=== PATIENT | female | born 1955 | race Caucasian/White ===

== ENCOUNTER → 2017-04-06 | Outpatient (CLI) | payer MEDICARE, OTHER ==
[~2017-04-06] MED LIST: ARI2 PO; ESCI20TA8 PO; FLUT16SP19 NS; FURO-47 PO; LOSA50TA72 PO; METF-410 PO; OMEP-125 PO
[2017-04-06 12:28] LABS: LDL CHOLESTEROL 104 mg/dl
== END ==
LOC: LAB 11:32
PROVIDERS: ATTEND Nurse Practitioner Primary Care
DX: E11.9 Type 2 diabetes mellitus without complications (principal); I10 Essential (primary) hypertension
CPT/HCPCS: 36415; 82040; 82247; 82310; 82374; 82435; 82465; 82565; 82947; 83036; 83718; 84075; 84132; 84155; 84295; 84450; 84460; 84478; 84520

== ENCOUNTER → 2017-04-12 | Outpatient (CLI) | payer MEDICARE, OTHER ==
[~2017-04-12] MED LIST changes: +ATOR40TA69 PO; +BLOO-1337 MC; +METF-415 PO
== END ==
LOC: LAB 09:59
PROVIDERS: ATTEND Nurse Practitioner Primary Care
DX: E78.00 Pure hypercholesterolemia, unspecified (principal)
CPT/HCPCS: 36415; 82465; 83718; 84478

== ENCOUNTER 2017-05-17 10:55 | Outpatient (RCR) | payer MEDICARE, OTHER ==
[2017-04-26 11:02] VITALS: BP 141/80
[2017-04-26 11:21] LABS: PLATELET COUNT, AUTOMATED 219 K/uL (150-450)
[~2017-05-17 10:55] MED LIST changes: +BLOO-292 ASDIRECTED
[2017-05-17 11:02] VITALS: BP 138/81
--- NOTE | 2017-05-17 19:12 | ONCOLOGY FOLLOW UP NOTE ---
EVENT DATE: May 17, 2017 DIAGNOSES 1. 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 EGFR negative, ALK negative. 2. Hypertension. 3. Obstructive sleep apnea. 4. History of intracerebral bleed after brain radiation. 5. Depression. CHIEF COMPLAINT Patient is here today for followup of her stage IV left lung cancer. ONCOLOGY HISTORY Patient is a 62-year-old female who was initially diagnosed with stage IV adenocarcinoma of the lower lobe of the left lung with multiple brain metastases , diagnosed October 2012. At that time her stage was (T1b N2 M1b). Her tumor was grade 3 adenocarcinoma, EGFR negative, ALK negative. She was treated at [facility] in [place]. She received stereotactic radiosurgery to the brain metastasis, completed October 2012. She was treated with carboplatin, Alimta for a total of four cycles completed March 28, 2013. She tolerated chemotherapy poorly and she had progression of her disease, and for which the patient received second line Taxotere, and she received 12 cycles between April 22, 2013 through December 12, 2013, and treatment was discontinued due to the development of capillary leak syndrome. Re-staging workup at that time showed excellent response to the treatment, and given the poor tolerability to Taxotere, she was placed on surveillance. She moved to [place] in January of 2016. PAST MEDICAL HISTORY 1. Allergy. 2. Hypertension. 3. History of lung cancer. PAST SURGICAL SURGERY 1. Back surgery. 2. Brain surgery. 3. Tonsillectomy. SOCIAL HISTORY Patient is a heavy smoker. She smoked half a pack a day for 30 years. She drinks on a daily basis, about 8.4 oz per week, 14 shots of liquor per week. Denies any abuse of illicit drugs. FAMILY HISTORY Negative for cancer or blood diseases. Her sister had rheumatoid arthritis and father also. CURRENT MEDICATION 1. Abilify 2 mg tablet one tablet daily. 2. Escitalopram 20 mg daily. 3. Folic acid and multivitamin one a day. 4. Lasix 40 mg daily. 5. Losartan 50 mg daily. 6. Metformin 500 mg twice daily. 7. Omeprazole 20 mg daily. ALLERGIES 1. IODINE and IODIDE CONTAINING PRODUCTS, which causes hives. 2. SULFA DRUGS which cause rash. HISTORY OF PRESENT ILLNESS Patient is here today for follow up of her left lung cancer. She is totally asymptomatic and doing very well currently. REVIEW OF SYSTEMS CONSTITUTIONAL: No appetite or weight change. No fever, chills or sweating. No recent infection. HEENT: Ears: No tinnitus or hearing problem. Nose: No nasal discharge or epistaxis. Throat: No sore throat or mouth ulcers. Eyes: No diplopia or visual changes. RESPIRATORY: No shortness of breath. No cough, expectoration or hemoptysis. CARDIOVASCULAR: No chest pain, orthopnea, or paroxysmal nocturnal dyspnea (PND) . No edema. No palpitations. GASTROINTESTINAL: No nausea or vomiting. No diarrhea or constipation. No change in bowel movements. No heartburn or swallowing difficulties. No abdominal pain. No jaundice. No hematemesis, melena or rectal bleeding. GENITOURINARY: No hematuria or dysuria. MUSCULOSKELETAL: No pain in the muscles, joints or bones. NEUROLOGICAL: No tingling or numbness in the hands or feet. No headaches or convulsions. HEMATOLOGIC/LYMPHATIC: No bleeding or easy bruising. No weakness or fatigue. No enlarged lymph nodes. SKIN: No skin rash or lumps. PSYCHIATRIC: No anxiety or depression. PHYSICAL EXAMINATION GENERAL: Looks stable. Well-developed, well-nourished, and in no acute distress. VITAL SIGNS: Blood pressure 138/81, pulse 71 per minute, respirations 16 per minute, temperature 97.6, pulse ox 91% on room air. HEENT: Head: Atraumatic. No sinus tenderness to palpation. Eyes: No icterus or conjunctivitis. Mouth and throat: No oral thrush or mucositis. NECK: Supple. No cervical or supraclavicular lymphadenopathy. LUNGS: Clear to auscultation and percussion bilaterally. HEART: Regular rate and rhythm. No gallops, murmurs, clicks or rubs. ABDOMEN: Soft and lax. No tenderness. No hepatosplenomegaly. No masses. EXTREMITIES: No cyanosis, clubbing or edema. LYMPHATICS: No peripheral lymphadenopathy. NEUROLOGICAL: Conscious, alert and oriented times three. No focal motor or sensory deficits. PSYCHIATRIC: Mood and affect appear normal. SKIN: No skin rash, bruise or purpuric eruption. DIAGNOSTIC DATA MRI of the brain did not show any evidence of disease recurrence in her brain, while PET-CT scan done on May 01, 2017 did not show any systemic metastasis , but there was some activity identified in the left perihilar region in the lung. The previous exam had an SUV of 2.8, and her recent exam had an SUV of 3.2. ASSESSMENT Stage IV adenocarcinoma of the lower lobe of the left lung with brain metastasis , EGFR negative, ALK negative. Status post initial treatment with carboplatin, Alimta for four cycles. Received during 2012 and completed on March 28, 2013 with poor tolerance. On progression of her disease she received 12 courses of Taxotere between April 22, 2013 through December 12, 2013, and treatment was discontinued at that time because of capillary leak syndrome. She achieved very good response from the treatment and she was on surveillance since then. Her recent PET scan done in November 2016 was neg, and the previous uptake in the mediastinum resolved, but her recent PET-CT scan done on May 01, 2016 did reveal increased uptake in the left perihilar region with SUV increased from 2.8 to 3.2. I talked to the patient today regarding further management. We decided to continue followup and will repeat per PET scan in three months from now, and if the SUV continues to rise, I am planning to start treatment at that time. So I am planning to see her again in three months with CBC, chem panel, CEA and PET-CT scan for further evaluation. PLAN 1. Continue followup. 2. Patient to return in three months with CBC, chem panel, CEA and PET-CT scan. 3. Patient to contact us for any new concerns or complaints. ALLYD
[2017-06-18] MEDS ORDERED: ESCI20TA8 PO (10:24)
== END 2017-06-20 15:32 | disposition home or self-care (01) ==
LOC: ONC 10:55
PROVIDERS: ATTEND Internal Medicine Hematology
DX: C34.32 Malignant neoplasm of lower lobe, left bronchus or lung (principal); C79.31 Secondary malignant neoplasm of brain; I10 Essential (primary) hypertension; G47.33 Obstructive sleep apnea (adult) (pediatric); F17.210 Nicotine dependence, cigarettes, uncomplicated; Z79.899 Other long term (current) drug therapy
CPT/HCPCS: 36415; 82378; 85025; G0463; 82040; 82247; 82310; 82374; 82435; 82565; 82947; 84075; 84132; 84155; 84295; 84450; 84460; 84520; 99212

== ENCOUNTER → 2017-07-12 | Outpatient (CLI) | payer MEDICARE, OTHER ==
[~2017-07-12] MED LIST changes: +ATOR40TA24 PO
[2017-07-12 10:25] LABS: LDL CHOLESTEROL 28 mg/dl
== END ==
LOC: LAB 10:00
PROVIDERS: ATTEND Nurse Practitioner Primary Care
DX: I10 Essential (primary) hypertension (principal); E11.9 Type 2 diabetes mellitus without complications; E78.00 Pure hypercholesterolemia, unspecified
CPT/HCPCS: 36415; 82040; 82247; 82310; 82374; 82435; 82465; 82565; 82947; 83036; 83718; 84075; 84132; 84155; 84295; 84450; 84460; 84478; 84520

== ENCOUNTER 2017-08-16 10:30 | Outpatient (RCR) | payer MEDICARE, OTHER ==
[2017-08-15 11:10] VITALS: BP 143/73
[~2017-08-16 10:30] MED LIST changes: -METF-410 PO; +METF-411 PO
[2017-08-16 10:36] VITALS: BP 137/79
--- NOTE | 2017-08-16 15:34 | ONCOLOGY FOLLOW UP NOTE ---
EVENT DATE: August 16, 2017 DIAGNOSES 1. 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 EGFR negative, ALK negative. 2. Hypertension. 3. Obstructive sleep apnea. 4. History of intracerebral bleed after brain radiation. 5. Depression. CHIEF COMPLAINT Patient is here today for followup of her stage IV left lung cancer. ONCOLOGY HISTORY Patient is a 62-year-old female who was initially diagnosed with stage IV adenocarcinoma of the lower lobe of the left lung with multiple brain metastases , diagnosed October 2012. At that time her stage was (T1b N2 M1b). Her tumor was grade 3 adenocarcinoma, EGFR negative, ALK negative. She was treated at [facility] in [place]. She received stereotactic radiosurgery to the brain metastasis, completed October 2012. She was treated with carboplatin, Alimta for a total of four cycles completed March 28, 2013. She tolerated chemotherapy poorly and she had progression of her disease, and for which the patient received second line Taxotere, and she received 12 cycles between April 22, 2013 through December 12, 2013, and treatment was discontinued due to the development of capillary leak syndrome. Re-staging workup at that time showed excellent response to the treatment, and given the poor tolerability to Taxotere, she was placed on surveillance. She moved to [place] in January of 2016. HISTORY OF PRESENT ILLNESS Patient is here today for followup of her stage IV left lung cancer. Patient is totally asymptomatic today. PAST MEDICAL HISTORY 1. Allergy. 2. Hypertension. 3. History of lung cancer. PAST SURGICAL SURGERY 1. Back surgery. 2. Brain surgery. 3. Tonsillectomy. SOCIAL HISTORY Patient is a heavy smoker. She smoked half a pack a day for 30 years. She drinks on a daily basis, about 8.4 oz per week, 14 shots of liquor per week. Denies any abuse of illicit drugs. FAMILY HISTORY Negative for cancer or blood diseases. Her sister had rheumatoid arthritis and father also. CURRENT MEDICATION 1. Abilify 2 mg tablet one tablet daily. 2. Escitalopram 20 mg daily. 3. Folic acid and multivitamin one a day. 4. Lasix 40 mg daily. 5. Losartan 50 mg daily. 6. Metformin 500 mg twice daily. 7. Omeprazole 20 mg daily. ALLERGIES 1. IODINE and IODIDE-CONTAINING PRODUCTS, which causes hives. 2. SULFA DRUGS which cause rash. REVIEW OF SYSTEMS CONSTITUTIONAL: No appetite or weight change. No fever, chills or sweating. No recent infection. HEENT: Ears: No tinnitus or hearing problem. Nose: No nasal discharge or epistaxis. Throat: No sore throat or mouth ulcers. Eyes: No diplopia or visual changes. RESPIRATORY: No shortness of breath. No cough, expectoration or hemoptysis. CARDIOVASCULAR: No chest pain, orthopnea, or paroxysmal nocturnal dyspnea (PND) . No edema. No palpitations. GASTROINTESTINAL: No nausea or vomiting. No diarrhea or constipation. No change in bowel movements. No heartburn or swallowing difficulties. No abdominal pain. No jaundice. No hematemesis, melena or rectal bleeding. GENITOURINARY: No hematuria or dysuria. MUSCULOSKELETAL: No pain in the muscles, joints or bones. NEUROLOGICAL: No tingling or numbness in the hands or feet. No headaches or convulsions. HEMATOLOGIC/LYMPHATIC: No bleeding or easy bruising. No weakness or fatigue. No enlarged lymph nodes. SKIN: No skin rash or lumps. PSYCHIATRIC: No anxiety or depression. PHYSICAL EXAMINATION GENERAL: Looks stable. Well-developed, well-nourished, and in no acute distress. VITAL SIGNS: Blood pressure 137/79, pulse 70 per minute, respirations 16 per minute, temperature 97.3, pulse ox 90% on room air. HEENT: Head: Atraumatic. No sinus tenderness to palpation. Eyes: No icterus or conjunctivitis. Mouth and throat: No oral thrush or mucositis. NECK: Supple. No cervical or supraclavicular lymphadenopathy. LUNGS: Clear to auscultation and percussion bilaterally. HEART: Regular rate and rhythm. No gallops, murmurs, clicks or rubs. ABDOMEN: Soft and lax. No tenderness. No hepatosplenomegaly. No masses. EXTREMITIES: No cyanosis, clubbing or edema. LYMPHATICS: No peripheral lymphadenopathy. NEUROLOGICAL: Conscious, alert and oriented times three. No focal motor or sensory deficits. PSYCHIATRIC: Mood and affect appear normal. SKIN: No skin rash, bruise or purpuric eruption. DIAGNOSTIC DATA CBC showed white count 6.2, hemoglobin 15.2, hematocrit 42.8, platelets 199, 000. Chem panel totally normal except potassium 3.3, blood sugar 133, AST 40. Other parameters are normal. PET/CT scan done on August 09, 2017 showed warm uptake corresponding to the inferior hilum on the left. The SUV has decreased from 3.21 on the prior exam, and currently 2.44, and there are no visible masses by the CT scan. There is no evidence of metastatic disease elsewhere. There was extensive bowel activity, but similar to the prior two PET scans. ASSESSMENT Stage IV adenocarcinoma of the lower lobe of the left lung with brain metastasis , EGFR negative, ALK negative. Status post initial treatment with carboplatin, Alimta for four cycles. She received her chemotherapy in 2012 and completed the treatment March 28, 2013 with poor tolerance. On progression of her disease, she received 12 courses of Taxotere between April 22, 2013 through December 12, 2013, and treatment was discontinued at that time because of capillary leak syndrome. She achieved very good response from the treatment and she was on surveillance since then. Her recent PET scan done November 2016 was negative, and the previous uptake in the mediastinum resolved, but her PET-CT scan May 01, 2016 did reveal increased uptake in the left perihilar region with SUV increased from 2.8 to 3.2. her current PET scan done on July showed that the inferior hilar area on the left SUV value decreased from 3.21 and currently 2.44 with no visible mass by CT scan. I talked to the patient. This actually looks very good and there is no further workup needed at the moment. I am planning to see her again in three months with CBC, chem panel and CEA at that time. I am planning to repeat her PET scan in six months from now also to be sure that there is no progression in that area, and the patient is agreeable with that. PLAN 1. Continue followup. 2. Patient to return in three months with CBC, chem panel and CEA. 3. Patient to contact us for any new concerns or complaints. ALLYD
== END 2017-09-04 10:33 | disposition home or self-care (01) ==
LOC: ONC 10:30
PROVIDERS: ATTEND Internal Medicine Hematology
DX: C34.32 Malignant neoplasm of lower lobe, left bronchus or lung (principal); C79.31 Secondary malignant neoplasm of brain; I10 Essential (primary) hypertension; G47.33 Obstructive sleep apnea (adult) (pediatric); F17.210 Nicotine dependence, cigarettes, uncomplicated; Z79.899 Other long term (current) drug therapy
CPT/HCPCS: 36415; 85027; G0463; 82040; 82247; 82310; 82374; 82435; 82565; 82947; 84075; 84132; 84155; 84295; 84450; 84460; 84520; 99212

== ENCOUNTER 2017-11-16 10:30 | Outpatient (RCR) | payer MEDICARE, OTHER ==
[2017-11-12 10:43] LABS: PLATELET COUNT, AUTOMATED 227 K/uL (150-450)
[~2017-11-16 10:30] MED LIST changes: +ABILIF5PT PO; +BUPR-126 PO; -LOSA50TA72 PO; +LOSA50TA74 PO; -METF-411 PO; -METF-415 PO; +METF-450 PO; +METF-451 PO
[2017-11-16 10:39] VITALS: BP 118/78
--- NOTE | 2017-11-16 16:36 | ONCOLOGY FOLLOW UP NOTE ---
EVENT DATE: November 16, 2017 DIAGNOSES 1. 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 EGFR negative, ALK negative. 2. Hypertension. 3. Obstructive sleep apnea. 4. History of intracerebral bleed after brain radiation. 5. Depression. CHIEF COMPLAINT Patient is here today for followup of her stage IV left lung cancer. ONCOLOGY HISTORY Patient is a 62-year-old female who was initially diagnosed with stage IV adenocarcinoma of the lower lobe of the left lung with multiple brain metastases, diagnosed October 2012. At that time, her stage was [id number]. Her tumor was grade 3 adenocarcinoma, EGFR negative, ALK negative. She was treated at [facility] in [place]. She received stereotactic radiosurgery to the brain metastasis, completed October 2012. She was treated with carboplatin and Alimta for a total of four cycles, completed March 28, 2013. She tolerated chemotherapy poorly, and she had progression of her disease, for which the patient received second line Taxotere. She received 12 cycles between April 22, 2013, through December 12, 2013, and treatment was discontinued due to the development of capillary leak syndrome. Re-staging workup at that time showed excellent response to the treatment, and given the poor tolerability to Taxotere, she was placed on surveillance. She moved to [place] in January 2016. HISTORY OF PRESENT ILLNESS Patient is here today for followup of her stage IV left lung cancer. Patient is doing fine currently except she has constipation, better with probiotic, but she has also mucus with blood per rectum lately. Other than that, she is really doing fine. PAST MEDICAL HISTORY 1. Allergy. 2. Hypertension. 3. History of lung cancer. PAST SURGICAL SURGERY 1. Back surgery. 2. Brain surgery. 3. Tonsillectomy. SOCIAL HISTORY Patient is a heavy smoker. She smoked half a pack a day for 30 years. She drinks on a daily basis, about 8.4 oz per week, 14 shots of liquor per week. Denies any abuse of illicit drugs. FAMILY HISTORY Negative for cancer or blood diseases. Her sister had rheumatoid arthritis and father also. CURRENT MEDICATION 1. Abilify 2 mg tablet one tablet daily. 2. Escitalopram 20 mg daily. 3. Folic acid and multivitamin one a day. 4. Lasix 40 mg daily. 5. Losartan 50 mg daily. 6. Metformin 500 mg twice daily. 7. Omeprazole 20 mg daily. ALLERGIES 1. IODINE and IODIDE-CONTAINING PRODUCTS which cause hives. 2. SULFA DRUGS which cause rash. REVIEW OF SYSTEMS CONSTITUTIONAL: No appetite or weight change. No fever, chills, or sweating. No recent infection. HEENT: Ears: No tinnitus or hearing problem. Nose: No nasal discharge or epistaxis. Throat: No sore throat or mouth ulcers. Eyes: No diplopia or visual changes. RESPIRATORY: No shortness of breath. No cough, expectoration, or hemoptysis. CARDIOVASCULAR: No chest pain, orthopnea, or paroxysmal nocturnal dyspnea (PND). No edema. No palpitations. GASTROINTESTINAL: No nausea or vomiting. No diarrhea. She has constipation, better with probiotic, but she has rectal bleeding lately. No heartburn or swallowing difficulties. No abdominal pain. No jaundice. No hematemesis or melena. GENITOURINARY: No hematuria or dysuria. MUSCULOSKELETAL: No pain in the muscles, joints, or bones. NEUROLOGICAL: No tingling or numbness in the hands or feet. No headaches or convulsions. HEMATOLOGIC/LYMPHATIC: No bleeding or easy bruising. No weakness or fatigue. No enlarged lymph nodes. SKIN: No skin rash or lumps. PSYCHIATRIC: No anxiety or depression. PHYSICAL EXAMINATION GENERAL: Looks stable. Well developed, well nourished, and in no acute distress. VITAL SIGNS: Blood pressure 118/78, pulse 79 per minute, respirations 16 per minute, temperature 98.1, pulse ox 91% on room air. HEENT: Head: Atraumatic. No sinus tenderness to palpation. Eyes: No icterus or conjunctivitis. Mouth and throat: No oral thrush or mucositis. NECK: Supple. No cervical or supraclavicular lymphadenopathy. LUNGS: Clear to auscultation and percussion bilaterally. HEART: Regular rate and rhythm. No gallops, murmurs, clicks, or rubs. ABDOMEN: Soft and lax. No tenderness. No hepatosplenomegaly. No masses. EXTREMITIES: No cyanosis, clubbing, or edema. LYMPHATICS: No peripheral lymphadenopathy. NEUROLOGICAL: Conscious, alert, and oriented times three. No focal motor or sensory deficits. PSYCHIATRIC: Mood and affect appear normal. SKIN: No skin rash, bruise, or purpuric eruption. DIAGNOSTIC DATA CBC showed white count 6.7, hemoglobin 15.8, hematocrit 44.5, platelets 227,000. Chem panel was totally normal. CEA is normal at 1.8. ASSESSMENT 1. Stage IV adenocarcinoma of the lower lobe of the left lung with brain metastasis, EGFR negative, ALK negative, status post initial treatment with carboplatin and Alimta for four cycles. She received her chemotherapy in 2012 and completed the treatment on March 28, 2013, with poor tolerance. On progression of her disease, she received 12 courses of Taxotere between April 22, 2013, through December 12, 2013, and the treatment was discontinued at that time because of capillary leak syndrome. She achieved a very good response from her treatment, and she was on surveillance since then. Her PET scan November 2016 was negative. Her PET scan on August 09, 2017, showed the inferior hilar area on the left side. SUV value decreased from 3.21 to 2.44, but no visible masses by CT scan. I am planning to repeat her PET scan with her next visit in three months, and I will check her CBC, chemistry panel, and CEA at that time. 2. Rectal bleeding recently. I plan to refer the patient to Dr. Melvin for colonoscopy. PLAN 1. Refer to Dr. Melvin for colonoscopy for rectal bleeding. 2. Patient to return in three months with CBC, chem panel, CEA, and PET CT scan. 3. Patient to contact us for any new concern or complaints. MTDD
[2017-11-27] MEDS ORDERED: VENL37.514 PO (15:15)
[2017-11-27] MEDS ORDERED: VENL37.53 PO (16:20)
[2017-12-04] MEDS ORDERED: FURO-47 PO (12:22)
[2017-12-04] MEDS ORDERED: FLUT16SP19 NS (14:34)
[2017-12-04] MEDS ORDERED: LACT1CAP6 PO (14:34)
[2018-01-04] MEDS ORDERED: [UNRECOGNIZED DRUG - CODE] PO (11:34)
[2018-01-04] MEDS ORDERED: PRE5 PO (11:52)
[2018-01-04] MEDS ORDERED: PRED20TA6 PO (11:52)
[2018-01-04] MEDS ORDERED: FLU60VIA41 IM (16:52)
[2018-01-14] MEDS ORDERED: POTA-23 PO (11:39)
[2018-02-04] MEDS ORDERED: [UNRECOGNIZED DRUG - CODE] PO (13:12)
[2018-02-06] MEDS ORDERED: ABILIF5PT PO (09:14)
== END 2018-02-07 ==
LOC: ONC 10:30
PROVIDERS: ATTEND Internal Medicine Hematology
DX: C34.32 Malignant neoplasm of lower lobe, left bronchus or lung (principal); C79.31 Secondary malignant neoplasm of brain; I10 Essential (primary) hypertension; G47.33 Obstructive sleep apnea (adult) (pediatric); F17.210 Nicotine dependence, cigarettes, uncomplicated; Z79.899 Other long term (current) drug therapy
CPT/HCPCS: 36415; 82378; 85025; G0463; 82040; 82247; 82310; 82374; 82435; 82565; 82947; 84075; 84132; 84155; 84295; 84450; 84460; 84520; 99212

== ENCOUNTER 2017-12-25 01:01 | Day surgery (SDC) | payer MEDICARE, OTHER ==
[~2017-12-25] VITALS: Ht 172.7 cm; Wt 81.6 kg
[~2017-12-25 01:01] MED LIST changes: +LACT1CAP6 PO; +VENL37.514 PO; +VENL37.53 PO
[2017-12-25] MEDS ORDERED: LIDOCAINE/SOD BICARB 8.4% SYR ID ONE (06:30)
[2017-12-25] MEDS ORDERED: NORMOSOL R SOLN(*) 1000 ML BAG 1,000 ML IV PRN (06:30)
[2017-12-25 06:39] VITALS: BP 131/77
[2017-12-25] MEDS ORDERED: PROPOFOL EMUL(*) 10MG/ML 20 ML 40 ML ONE (07:02)
[2017-12-25] MEDS ORDERED: PROPOFOL EMUL(*) 10MG/ML 20 ML 20 ML ONE ×4 (07:35→08:18)
[2017-12-25] MEDS ORDERED: LABETALOL HCL 100 MG/20ML VIAL ONE ×2 (07:53→07:54)
[2017-12-25 08:33] VITALS: BP 100/68
[2017-12-25 08:46] VITALS: BP 122/75
--- NOTE | 2017-12-25 08:48 | Short(Outpt) Discharge Summary ---
Discharge Summary Reason for Hosp/Final Diag: (1) History of colon polyps Status: Chronic Hospital Course & Plan: Colonoscopy with polypectomy x8 completed without problems. (2) Blood per rectum Status: Chronic (3) Mucus in stool Status: Chronic (4) Constipation Status: Chronic (5) Proctitis Status: Chronic Departure Discharge to: Home, Self Care Discharge Instructions Home Meds Active Scripts Fluticasone Prop 50 Mcg Ns (FLONASE 50 MCG NS) 16 Gm [place].susp, 1 SPRAY NS BID PRN for ALLERGY SYMPTOMS, #1 BOT 3 Refills Prov:JADE CHAND MD 12/04/17 Furosemide (FUROSEMIDE) 40 Mg Tablet, 1 TAB PO QDAY, #90 TAB 1 Refill Prov:DARYL SCHERER DNP, FNP-BC 12/04/17 Venlafaxine Hcl (VENLAFAXINE HCL ER) 37.5 Mg Cap.er.24h, 37.5 MG PO QDAY for 60 Days, #120 CAP Take 1 capsule Daily x 5 days then increase to 2 capsules Daily Prov:DARYL SCHERER DNP, FNP-BC 11/27/17 Aripiprazole (ABILIFY) 5 Mg Tablet, 1 TAB PO QDAY, #90 TAB 0 Refills Prov:DARYL SCHERER DNP, FNP-BC 11/05/17 Atorvastatin Calcium (LIPITOR) 40 Mg Tablet, 1 TAB PO QDAY, #90 TAB 3 Refills Prov:DARYL SCHERER DNP, FNP-BC 07/12/17 Metformin Hcl (METFORMIN HCL) 850 Mg Tablet, 1 TAB PO BID, #180 TAB 2 Refills Prov:DARYL SCHERER DNP, FNP-BC 07/12/17 Losartan Potassium (LOSARTAN POTASSIUM) 50 Mg Tablet, 1 TAB PO QDAY, #90 TAB 2 Refills Prov:DARYL SCHERER DNP, FNP-BC 07/02/17 True Metrix Glucose Test Strip (True Metrix Glucose Test Strip) 1 Each Strip, BOX ASDIRECTED QDAY, #1 9 Refills Check blood sugar once daily Prov:DARYL SCHERER DNP, FNP-BC 04/18/17 Blood-Glucose Meter (ONE TOUCH ULTRA 2) 1 Each Kit, STRIP MC, #100 9 Refills Prov:DARYL SCHERER DNP, FNP-BC 04/16/17 Reported Medications Lactobacillus Combination No.4 (PROBIOTIC) 1 Each Capsule, 1 EACH PO QDAY, CAPSULE 12/04/17 Omeprazole (OMEPRAZOLE) 20 Mg Capsule.dr, 1 CAP PO QDAY PRN for REFLUX, CAP 02/21/17 Diet: Regular Activity: As Tolerated Special Instructions: Your colonoscopy was completed without problems. Your prep wasn't complete, there was a lot of slimy stool in your colon that blocked my ability to visualize your entire colon wall. In spite of this, I was able to remove 8 polyps, including a couple of larger polyps. These were all sent to pathology. Your rectum was also inflamed, a condition called proctitis. This is the cause of the mucus and blood you've been observing. I biopsied your rectum to try and identify the cause of the inflamation. I suspect it is due to an inflammatory bowel disease called ulcerative proctitis. My office will call you in then next couple of days and schedule you a follow up appointment with me in my office to discuss all the pathology results and come up with a treatment regimen to improve your symptoms. I will also discuss with you my recommendation that we repeat your colonoscopy in 1 year to recheck the inflammation on treatment, look for more polyps, and assess the sites that I removed polyps from today, all with a better bowel prep. Problem Qualifiers (1) Constipation: Constipation type: unspecified constipation type Qualified Codes: K59.00 - Constipation, unspecified JADE CHAND MD Dec 25, 2017 08:48
[2017-12-25 09:01] VITALS: BP 120/79
[2017-12-25 09:02] VITALS: BP 116/79
== END 2017-12-25 09:52 | disposition home or self-care (01) ==
LOC: OR 01:01
PROVIDERS: ATTEND Surgery
DX: D12.0 Benign neoplasm of cecum (principal); D12.3 Benign neoplasm of transverse colon; D12.2 Benign neoplasm of ascending colon; E11.9 Type 2 diabetes mellitus without complications
CPT/HCPCS: 00811; 36416; 45385; 82948; 88305; J2704; J3490

== ENCOUNTER → 2018-01-11 | Outpatient (CLI) | payer MEDICARE, OTHER ==
[~2018-01-11] MED LIST changes: +FLU60VIA41 IM; +POTA-23 PO; +PRE5 PO; +PRED20TA6 PO; +[UNRECOGNIZED DRUG - CODE] PO
[2018-01-11 11:25] LABS: LDL CHOLESTEROL 16 mg/dl
== END ==
LOC: LAB 10:36
PROVIDERS: ATTEND Nurse Practitioner Primary Care
DX: E11.9 Type 2 diabetes mellitus without complications (principal); E78.00 Pure hypercholesterolemia, unspecified; I10 Essential (primary) hypertension
CPT/HCPCS: 36415; 82040; 82247; 82310; 82374; 82435; 82465; 82565; 82947; 83036; 83718; 84075; 84132; 84155; 84295; 84450; 84460; 84478; 84520

== ENCOUNTER 2018-05-04 10:37 | Emergency (ER) | payer MEDICARE, OTHER ==
[~2018-05-04 10:37] MED LIST changes: -LOSA50TA74 PO; +LOSA50TA80 PO
--- NOTE | 2018-05-04 10:50 | ER Report ---
History and Physical Time Seen By MD: 10:50 HPI/ROS CHIEF COMPLAINT: Left foot pain HISTORY OF PRESENT ILLNESS: Patient is a 63-year-old female here with complaints of left foot pain in the dorsal aspect of the foot with swelling after a fall. Patient reports persistent pain and difficulty ambulating secondary to pain. Patient is neurovascularly intact at time of evaluation REVIEW OF SYSTEMS: Constitutional: No fever, no chills. Musculoskeletal: Left dorsal foot pain Skin: No rashes. Mild ecchymosis on the dorsum of left foot Neurological: Neurovascular exam intact in distal left extremity Allergies: Coded Allergies: Iodinated Contrast- Oral and IV Dye (Verified Allergy, Severe, HIVES, 05/04/18) Sulfa (Sulfonamide Antibiotics) (Verified Allergy, Intermediate, RASH, 05/04/18) Home Meds Active Scripts Losartan Potassium (LOSARTAN POTASSIUM) 50 Mg Tablet, 1 TAB PO QDAY for 90 Days, #90 TAB 4 Refills Prov:DARYL SCHERER DNP, FNP-BC 04/02/18 Potassium Chloride (KLOR-CON 10) 10 Meq Tablet.er, 1 TAB PO QDAY for 90 Days, #90 TAB 1 Refill Prov:DARYL SCHERER DNP, FNP-BC 01/14/18 Fluticasone Prop 50 Mcg Ns (FLONASE 50 MCG NS) 16 Gm Philo.susp, 1 SPRAY NS BID PRN for ALLERGY SYMPTOMS, #1 BOT 3 Refills Prov:JADE CHAND MD 12/04/17 Furosemide (FUROSEMIDE) 40 Mg Tablet, 1 TAB PO QDAY, #90 TAB 1 Refill Prov:DARYL SCHERER DNP, FNP-BC 12/04/17 Venlafaxine Hcl (VENLAFAXINE HCL ER) 37.5 Mg Cap.er.24h, 37.5 MG PO QDAY for 60 Days, #120 CAP Take 1 capsule Daily x 5 days then increase to 2 capsules Daily Prov:DARYL SCHERER DNP, FNP-BC 11/27/17 Atorvastatin Calcium (LIPITOR) 40 Mg Tablet, 1 TAB PO QDAY, #90 TAB 3 Refills Prov:DARYL SCHERER DNP, FNP-BC 07/12/17 Metformin Hcl (METFORMIN HCL) 850 Mg Tablet, 1 TAB PO BID, #180 TAB 2 Refills Prov:DARYL SCHERER DNP, FNP- 07/12/17 True Metrix Glucose Test Strip (True Metrix Glucose Test Strip) 1 Each Strip, BOX ASDIRECTED QDAY, #1 9 Refills Check blood sugar once daily Prov:DARYL SCHERER DNP [facility] 04/18/17 Blood-Glucose Meter (ONE TOUCH ULTRA 2) 1 Each Kit, STRIP MC, #100 9 Refills Prov:DARYL SCHERER DNP [facility] 04/16/17 Reported Medications Brexpiprazole (Rexulti) 2 Mg Tablet, 2 MG PO QDAY 05/04/18 Escitalopram Oxalate (ESCITALOPRAM OXALATE) 10 Mg Tablet, 10 MG PO QDAY, TAB 05/04/18 Omeprazole (OMEPRAZOLE) 20 Mg Capsule.dr, 1 CAP PO QDAY PRN for REFLUX, CAP 02/21/17 Discontinued Reported Medications Lactobacillus Combination No.4 (PROBIOTIC) 1 Each Capsule, 1 EACH PO QDAY, CAPSULE 12/04/17 Discontinued Scripts Aripiprazole (ABILIFY) 5 Mg Tablet, 1 TAB PO QDAY, #90 TAB 1 Refill Prov:DARYL SCHERER DNP [facility] 02/06/18 Balsalazide Disodium (BALSALAZIDE DISODIUM) 750 Mg Tab, 3 TAB PO TID, #270 TAB 0 Refills Prov:JADE CHAND MD 02/04/18 Hx Smoking: Yes (1PPD DAILY FOR 10 YRS, QUIT 2012) Smoking Status: Former Smoker Hx Alcohol Use: Yes Constitutional Vital Sign - Last 24 Hours 05/04/18 05/04/18 05/04/18 05/04/18 10:37 10:45 10:51 11:00 Temp 98.7 Pulse 70 73 Resp 12 B/P (MAP) 122/72 (89) 122/72 101/82 (88) Pulse Ox 91 89 O2 Delivery Room Air Room Air 05/04/18 05/04/18 05/04/18 05/04/18 11:07 11:30 11:37 11:42 Pulse 71 72 73 B/P (MAP) 107/69 (82) Pulse Ox 92 90 91 O2 Delivery Room Air Room Air Room Air 05/04/18 05/04/18 05/04/18 05/04/18 12:00 12:12 12:30 12:42 Pulse 73 70 B/P (MAP) 94/65 (75) 88/62 (71) Pulse Ox 90 91 O2 Delivery Room Air Room Air 05/04/18 05/04/18 13:00 13:12 Pulse 70 B/P (MAP) 89/70 (76) Pulse Ox 91 O2 Delivery Room Air Physical Exam General Appearance: The patient is alert, has no immediate need for airway protection and no signs of toxicity. No acute distress Neurological: Neurovascular exam intact Skin: Ecchymosis on the dorsum of left foot Musculoskeletal: Tenderness on palpation of left lower extremity dorsum of foot [ ] DIFFERENTIAL DIAGNOSIS: After history and physical exam differential diagnosis was considered for fracture, contusion, dislocation, sprain Medical Decision Making EKG/Imaging Imaging Location: [facility] - [place] Patient: Zulma Kirk : 1955 Visit/Account:[id number] Date of Sevice: 05/04/2018 FOOT 3 VIEWS RIGHT HISTORY: pain COMPARISON: None FINDINGS: On lateral image there is questionable dorsal nondisplaced fracture of the cuneiform. Moderate soft tissue swelling at the midfoot.. Bohler angle is well maintained. Base of the 5th metatarsal is intact. TMT joints are well aligned. Dorsal spurring at the talar neck. IMPRESSION: 1. On lateral image there is a questionable nondisplaced dorsal cuneiform fracture although there is significant obliquity. Moderate soft tissue swelling at the midfoot. Recommend clinical correlation for pain at this site. ED Course/Re-evaluation ED Course Patient is a 63-year-old female here with complaints of dorsal left foot pain after a fall. X-ray imaging was concerning for acneiform fracture. Recommend crutches, walking boot and follow up with orthopedics. Return precautions provided. Patient was neurovascularly intact prior to discharge. Decision to Disposition Date: May 04, 2018 Decision to Disposition Time: 13:31 Depart Departure Latest Vital Signs Vital Signs Date Time Temp Pulse Resp B/P (MAP) Pulse Ox O2 Delivery O2 Flow Rate FiO2 05/04/18 13:12 70 91 Room Air 05/04/18 13:00 89/70 (76) 05/04/18 10:51 98.7 12 Impression: Primary Impression: Foot pain, left Condition: Improved Disposition: HOME OR SELF-CARE Referrals: DARYL SCHERER DNP, LUMBER CARRIER OPERATOR-BC (PCP) Patient Instructions: Musculoskeletal Pain (ED) Additional Instructions: You were identified with a questionable foot fracture. Please use crutches and a walking boot and follow up with orthopedics in one week. Please return immediately if she develop worsening pain, numbness. NESTOR OLMOS DO May 04, 2018 10:50
[2018-05-04] MEDS ORDERED: ESCI10TA8 PO (11:33)
[2018-05-04] MEDS ORDERED: BREX2TAB PO (11:33)
[2018-05-04 13:00] VITALS: BP 89/70
--- NOTE | 2018-05-04 13:04 | RADIOLOGY IMAGING REPORT ---
FACILITY: [facility] [place] PATIENT NAME: Zulma Kirk : 1955 MR: [id number] V: [id number] EXAM DATE: ORDERING PHYSICIAN: NESTOR OLMOS TECHNOLOGIST: Location: [facility] [place] Patient: Zulma Kirk : 1955 Visit/Account:[id number] Date of Sevice: 05/04/2018 FOOT 3 VIEWS RIGHT HISTORY: pain COMPARISON: None FINDINGS: On lateral image there is questionable dorsal nondisplaced fracture of the cuneiform. Moder ate soft tissue swelling at the midfoot.. Bohler angle is well maintained. Base of the 5th metatarsal is intact. TMT joints are well aligned. Dorsal spurring at the talar neck. IMPRESSION: 1. On lateral image there is a questionable nondisplaced dorsal cuneiform fracture although there is significant obliquity. Moderate soft tissue swelling at the midfoot. Recommend clinical correlation f or pain at this site. Report Dictated By: Taj Dominguez MD at 05/04/2018 12:56 PM Report E-Signed By: Taj Dominguez MD at 05/04/2018 12:59 PM WSN:[id number]
== END 2018-05-04 13:41 | disposition home or self-care (01) ==
LOC: ER 10:56
DX: M79.672 Pain in left foot (principal); M79.89 Other specified soft tissue disorders
CPT/HCPCS: 99283

== ENCOUNTER 2018-05-31 10:51 | Outpatient (RCR) | payer MEDICARE, OTHER ==
[2018-03-05 10:31] VITALS: BP 151/73
[2018-03-05 10:57] LABS: PLATELET COUNT, AUTOMATED 224 K/uL (150-450)
[2018-03-08 11:08] VITALS: BP 141/87
[2018-03-08] MEDS: LIDOCAINE/SOD BICARB 8.4% SYR ID PRN (12:33)
[2018-03-08] MEDS: HEPARIN FLSH (PORT) 500 UN/5ML IVP PRN (12:33)
--- NOTE | 2018-03-08 20:46 | EL-TARABILY ONCOLOGY NOTE ---
EVENT DATE: March 08, 2018 DIAGNOSES 1. 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 EGFR negative, ALK negative. 2. Hypertension. 3. Obstructive sleep apnea. 4. History of intracerebral bleed after brain radiation. 5. Depression. CHIEF COMPLAINT Patient is here today for followup of her stage IV left lung cancer. ONCOLOGY HISTORY Patient is a 63-year-old female who was initially diagnosed with stage IV adenocarcinoma of the lower lobe of the left lung with multiple brain metastases, diagnosed October 2012. At that time, her stage was T1b N2 M1b. Her tumor was grade 3 adenocarcinoma, EGFR negative, ALK negative. She was treated at [facility] in [place]. She received stereotactic radiosurgery to the brain metastasis, completed October 2012. She was treated with carboplatin and Alimta for a total of four cycles, completed March 28, 2013. She tolerated chemotherapy poorly, and she had progression of her disease, for which the patient received second line Taxotere. She received 12 cycles between April 22, 2013, through December 12, 2013, and treatment was discontinued due to the development of capillary leak syndrome. Re-staging workup at that time showed excellent response to the treatment, and given the poor tolerability to Taxotere, she was placed on surveillance. She moved to [place] in January 2016. HISTORY OF PRESENT ILLNESS Patient is here today for followup of her stage IV left lung cancer. She is doing fine currently apart from having some easy bruising. Patient does not have any other problem. PAST MEDICAL HISTORY 1. Allergy. 2. Hypertension. 3. History of lung cancer. PAST SURGICAL SURGERY 1. Back surgery. 2. Brain surgery. 3. Tonsillectomy. SOCIAL HISTORY Patient is a heavy smoker. She smoked half a pack a day for 30 years. She drinks on a daily basis, about 8.4 oz per week, 14 shots of liquor per week. Denies any abuse of illicit drugs. FAMILY HISTORY Negative for cancer or blood diseases. Her sister had rheumatoid arthritis and father also. CURRENT MEDICATION 1. Abilify 2 mg tablet one tablet daily. 2. Escitalopram 20 mg daily. 3. Folic acid and multivitamin one a day. 4. Lasix 40 mg daily. 5. Losartan 50 mg daily. 6. Metformin 500 mg twice daily. 7. Omeprazole 20 mg daily. ALLERGIES 1. IODINE and IODIDE-CONTAINING PRODUCTS which cause hives. 2. SULFA DRUGS which cause rash. REVIEW OF SYSTEMS CONSTITUTIONAL: No appetite or weight change. No fever, chills, or sweating. No recent infection. HEENT: Ears: No tinnitus or hearing problem. Nose: No nasal discharge or epistaxis. Throat: No sore throat or mouth ulcers. Eyes: No diplopia or visual changes. RESPIRATORY: No shortness of breath. No cough, expectoration, or hemoptysis. CARDIOVASCULAR: No chest pain, orthopnea, or paroxysmal nocturnal dyspnea (PND). No edema. No palpitations. GASTROINTESTINAL: No nausea or vomiting. No diarrhea or constipation. No change in bowel movements. No heartburn or swallowing difficulties. No abdominal pain. No jaundice. No hematemesis, melena, or rectal bleeding. GENITOURINARY: No hematuria or dysuria. MUSCULOSKELETAL: No pain in the muscles, joints, or bones. NEUROLOGICAL: No tingling or numbness in the hands or feet. No headaches or convulsions. HEMATOLOGIC/LYMPHATIC: No bleeding. She bruises easily. No weakness or fatigue. No enlarged lymph nodes. SKIN: No skin rash or lumps. PSYCHIATRIC: No anxiety or depression. PHYSICAL EXAMINATION GENERAL: Looks stable. Well developed, well nourished, and in no acute distress. VITAL SIGNS: Blood pressure 141/87, pulse 73 per minute, respirations 16 per minute, temperature 99.2, pulse ox 90% on room air. HEENT: Head: Atraumatic. No sinus tenderness to palpation. Eyes: No icterus or conjunctivitis. Mouth and Throat: No oral thrush or mucositis. NECK: Supple. No cervical or supraclavicular lymphadenopathy. LUNGS: Clear to auscultation and percussion bilaterally. HEART: Regular rate and rhythm. No gallops, murmurs, clicks, or rubs. ABDOMEN: Soft and lax. No tenderness. No hepatosplenomegaly. No masses. EXTREMITIES: No cyanosis, clubbing, or edema. LYMPHATICS: No peripheral lymphadenopathy. NEUROLOGICAL: Conscious, alert, and oriented times three. No focal motor or sensory deficits. PSYCHIATRIC: Mood and affect appear normal. SKIN: No skin rash, bruise, or purpuric eruption. DIAGNOSTIC DATA CBC showed white count 5.5, hemoglobin 14.2, hematocrit 41.2, platelets 224,000. Chem panel totally normal except blood sugar 116. CEA is normal at 1.7. PET/CT scan done on the January was negative for malignancy. ASSESSMENT 1. Stage IV adenocarcinoma of the lower lobe of the left lung with brain metastasis, EGFR negative, ALK negative, status post initial treatment with carboplatin and Alimta for four cycles. She received her chemotherapy in 2012 and completed the treatment on March 28, 2013, with poor tolerance. On progression of her disease, she received 12 courses of Taxotere between April 22, 2013, through December 12, 2013, and the treatment was discontinued at that time because of capillary leak syndrome. She achieved a very good response from her treatment, and she was on surveillance since then. Her PET scan July 2017 showed inferior hilar area with SUV 2.44. Her current PET/CT scan done February 11, 2018, was negative for malignancy. I am planning to see her in four months with CBC, chemistry panel, and CEA. 2. Rectal bleeding. Patient has been evaluated by Dr. Melvin, who did a colonoscopy, and the patient was diagnosed with Crohn disease and treated for that. PLAN 1. Continue followup. 2. Patient to return in four months with CBC, chem panel, and CEA. 3. Patient to contact us for any new concern or complaints. 4. Portal flush every month. MTDD
[2018-04-19 11:13] VITALS: BP 123/80
[2018-04-19] MEDS: HEPARIN FLSH (PORT) 500 UN/5ML IVP PRN (11:16)
[2018-04-19] MEDS: LIDOCAINE/SOD BICARB 8.4% SYR ID PRN (11:17)
[~2018-05-31 10:51] MED LIST changes: +ALTEPLASE RECOMB 2 MG VIAL IVP PRN; +BREX2TAB PO; +DEXTROSE 5%(*) 100 ML BAG 100 ML IVPB PRN; +ESCI10TA8 PO; +NS(*) 0.9% 100 ML BAG 100 ML IVPB PRN; +NS(*) 0.9% 500 ML BAG 500 ML IV PRN; +WATER FOR INJ,STERILE 20 ML IVP PRN
[2018-05-31 10:59] VITALS: BP 153/71
[2018-05-31] MEDS: HEPARIN FLSH (PORT) 500 UN/5ML IVP PRN (11:05)
[2018-05-31] MEDS: LIDOCAINE/SOD BICARB 8.4% SYR ID PRN (11:06)
[2018-06-05] MEDS ORDERED: METF-451 PO (09:00)
== END 2018-06-02 ==
LOC: SPU 10:51
PROVIDERS: ATTEND Internal Medicine Hematology
DX: C34.32 Malignant neoplasm of lower lobe, left bronchus or lung (principal); C79.31 Secondary malignant neoplasm of brain; I10 Essential (primary) hypertension; G47.33 Obstructive sleep apnea (adult) (pediatric); F17.210 Nicotine dependence, cigarettes, uncomplicated; Z79.899 Other long term (current) drug therapy; K50.90 Crohn's disease, unspecified, without complications; Z92.21 Personal history of antineoplastic chemotherapy
CPT/HCPCS: 36415; 82378; 85025; 96523; G0463; J1642; 82040; 82247; 82310; 82374; 82435; 82565; 82947; 84075; 84132; 84155; 84295; 84450; 84460; 84520; 99212

== ENCOUNTER → 2018-07-08 | Outpatient (CLI) | payer MEDICARE, OTHER ==
[~2018-07-08] MED LIST changes: -ALTEPLASE RECOMB 2 MG VIAL IVP PRN; -DEXTROSE 5%(*) 100 ML BAG 100 ML IVPB PRN; -NS(*) 0.9% 100 ML BAG 100 ML IVPB PRN; -NS(*) 0.9% 500 ML BAG 500 ML IV PRN; -WATER FOR INJ,STERILE 20 ML IVP PRN
== END ==
LOC: SPU 10:50
PROVIDERS: ATTEND Nurse Practitioner Primary Care
DX: E78.00 Pure hypercholesterolemia, unspecified (principal); E11.9 Type 2 diabetes mellitus without complications
CPT/HCPCS: 82040; 82247; 82310; 82374; 82435; 82565; 82947; 83036; 84075; 84132; 84155; 84295; 84450; 84460; 84520

== ENCOUNTER → 2018-07-19 | Outpatient (CLI) | payer MEDICARE, OTHER ==
--- NOTE | 2018-07-19 16:04 | RADIOLOGY IMAGING REPORT ---
FACILITY: PATIENT NAME: Zulma Kirk : 1955 MR: [id number] V: [id number] EXAM DATE: ORDERING PHYSICIAN: DARYL SCHERER TECHNOLOGIST: Location: [facility] Patient: Zulma Kirk : 1955 Visit/Account:[id number] Date of Sevice: 07/19/2018 DEXA Scan Clinical history: Postmenopausal screening. Comparison: . HIP: Bone mineral density (BMD) measured in the Left total hip region correlates with a Z-score -1.1 and a T-score of -1.8 which is osteopenia as defined by the World Health Organization. The correspondin g risk of fracture in the hip is 3-4 times increased compared with a young adult reference population . Bone mineral density (BMD) measured in the Femoral Neck region measures 0.781 g/cm2. FOREARM: The bone mineral density (BMD) measured in the ULTRADISTAL left forearm, where trabecular bone predom inates, correlates with a Z-score -0.2 and a T-score of -1.5 which is osteopenia as defined by the Wo rld Health Organization. The corresponding risk of fracture in the distal forearm is 3 times increas ed compared with a young adult reference population. The bone mineral density (BMD) in the MIDSHAFT of the forearm, where cortical bone predominates, marty elates with a Z-score 0.3 and a T-score of -1 which is normal as defined by the World Health Organiza tion. The corresponding risk of fracture in the midshaft of the forearm is 2 times increased compared with a young adult reference population. IMPRESSION: 1. Left Hip: Osteopenia. 2. Femoral Neck: Bone Mineral Density is 0.781 g/cm2 3. Left Forearm: Osteopenia. The next DEXA scan of this patient should include the following sites: Left hip and the left forearm. FRAX? WHO Fracture Risk Assessment Tool link: <http://www.shef.ac.uk/FRAX/tool.jsp?[email or web address]> PLEASE NOTE: 1) The World Health Organization defines low BMD as follows: T-score Normal > -1 Osteopenia < -1 and > -2.5 Osteoporosis < -2.5 without fractures Established osteoporosis < -2.5 with fractures 2) In general, you may wish to consider: Diagnosis Treatment Follow-up DEXA Normal BMD Prevention 2-3 years Osteopenia Prevention/therapy 1-2 years Osteoporosis Therapy Yearly 3) Fracture risk estimated from the T-score is more accurate for vertebral fractures (often spontane ous) than for hip fractures. Report Dictated By: Yue Quintero MD at 07/19/2018 3:58 PM Report E-Signed By: Yue Quintero MD at 07/19/2018 4:00 PM WSN:[email or web address]
== END ==
LOC: RAD 07:16
PROVIDERS: ATTEND Nurse Practitioner Primary Care
DX: Z13.820 Encounter for screening for osteoporosis (principal); M85.89 Other specified disorders of bone density and structure, multiple sites
CPT/HCPCS: 77080

== ENCOUNTER 2018-07-26 12:27 | Outpatient (RCR) | payer MEDICARE, OTHER ==
[2018-07-08 11:17] LABS: PLATELET COUNT, AUTOMATED 205 K/uL (150-450)
[~2018-07-26 12:27] MED LIST changes: +ALTEPLASE RECOMB 2 MG VIAL IVP PRN; +DEXTROSE 5%(*) 100 ML BAG 100 ML IVPB PRN; +HEPARIN FLSH (PORT) 500 UN/5ML IVP PRN; +LIDOCAINE/SOD BICARB 8.4% SYR ID PRN; +NS(*) 0.9% 100 ML BAG 100 ML IVPB PRN; +NS(*) 0.9% 250 ML BAG 250 ML IVPB PRN; +WATER FOR INJ,STERILE 20 ML IVP PRN
[2018-07-26 12:28] VITALS: BP 171/85
--- NOTE | 2018-07-26 20:40 | ONCOLOGY FOLLOW UP NOTE ---
EVENT DATE: July 26, 2018 DIAGNOSES 1. 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 EGFR negative, ALK negative. 2. Hypertension. 3. Obstructive sleep apnea. 4. History of intracerebral bleed after brain radiation. 5. Depression. CHIEF COMPLAINT Patient is here today for followup of her stage IV left lung cancer. ONCOLOGY HISTORY Patient is a 63-year-old female who was initially diagnosed with stage IV adenocarcinoma of the lower lobe of the left lung with multiple brain metastases, diagnosed October 2012. At that time, her stage was T1b N2 M1b. Her tumor was grade 3 adenocarcinoma, EGFR negative, ALK negative. She was treated at [facility] in [place]. She received stereotactic radiosurgery to the brain metastasis, completed October 2012. She was treated with carboplatin and Alimta for a total of four cycles, completed March 28, 2013. She tolerated chemotherapy poorly, and she had progression of her disease, for which the patient received second line Taxotere. She received 12 cycles between April 22, 2013, through December 12, 2013, and treatment was discontinued due to the development of capillary leak syndrome. Re-staging workup at that time showed excellent response to the treatment, and given the poor tolerability to Taxotere, she was placed on surveillance. She moved to [place] in January 2016. HISTORY OF PRESENT ILLNESS Patient is here today for followup of her stage IV left lung cancer. She is doing really very well currently. She has some runny nose from her allergies. She is also weak, tired, and fatigued, but other than that, she is really doing very well. No gastrointestinal symptoms. PAST MEDICAL HISTORY 1. Allergy. 2. Hypertension. 3. History of lung cancer. PAST SURGICAL SURGERY 1. Back surgery. 2. Brain surgery. 3. Tonsillectomy. SOCIAL HISTORY Patient is a heavy smoker. She smoked half a pack a day for 30 years. She drinks on a daily basis, about 8.4 oz per week, 14 shots of liquor per week. Denies any abuse of illicit drugs. FAMILY HISTORY Negative for cancer or blood diseases. Her sister had rheumatoid arthritis and father also. CURRENT MEDICATION 1. Abilify 2 mg tablet one tablet daily. 2. Escitalopram 20 mg daily. 3. Folic acid and multivitamin one a day. 4. Lasix 40 mg daily. 5. Losartan 50 mg daily. 6. Metformin 500 mg twice daily. 7. Omeprazole 20 mg daily. ALLERGIES 1. IODINE and IODIDE-CONTAINING PRODUCTS which cause hives. 2. SULFA DRUGS which cause rash. REVIEW OF SYSTEMS CONSTITUTIONAL: No appetite or weight change. No fever, chills, or sweating. No recent infection. HEENT: Ears: No tinnitus or hearing problem. Nose: She has a runny nose from allergy. Throat: No sore throat or mouth ulcers. Eyes: No diplopia or visual changes. RESPIRATORY: No shortness of breath. No cough, expectoration, or hemoptysis. CARDIOVASCULAR: No chest pain, orthopnea, or paroxysmal nocturnal dyspnea (PND). No edema. No palpitations. GASTROINTESTINAL: No nausea or vomiting. No diarrhea or constipation. No change in bowel movements. No heartburn or swallowing difficulties. No abdominal pain. No jaundice. No hematemesis, melena, or rectal bleeding. GENITOURINARY: No hematuria or dysuria. MUSCULOSKELETAL: No pain in the muscles, joints, or bones. NEUROLOGIC: No tingling or numbness in the hands or feet. No headaches or convulsions. HEMATOLOGIC/LYMPHATIC: No bleeding or easy bruising. She is weak, tired, and fatigued. No enlarged lymph nodes. SKIN: No skin rash or lumps. PSYCHIATRIC: No anxiety or depression. PHYSICAL EXAMINATION GENERAL: Looks stable. Well developed, well nourished, and in no acute distress. VITAL SIGNS: Blood pressure 171/85, pulse 74 per minute, respirations 16 per minute, pulse ox 96% on room air. HEENT: Head: Atraumatic. No sinus tenderness to palpation. Eyes: No icterus or conjunctivitis. Mouth and Throat: No oral thrush or mucositis. NECK: Supple. No cervical or supraclavicular lymphadenopathy. LUNGS: Clear to auscultation and percussion bilaterally. HEART: Regular rate and rhythm. No gallops, murmurs, clicks, or rubs. ABDOMEN: Soft and lax. No tenderness. No hepatosplenomegaly. No masses. EXTREMITIES: No cyanosis, clubbing, or edema. LYMPHATICS: No peripheral lymphadenopathy. NEUROLOGIC: Conscious, alert, and oriented times three. No focal motor or sensory deficits. PSYCHIATRIC: Mood and affect appear normal. SKIN: No skin rash, bruise, or purpuric eruption. DIAGNOSTIC DATA CBC showed white count 5.8, hemoglobin 14.5, hematocrit 42.9, platelets 205,000. Chem panel totally normal except blood sugar 112. Her CEA is 1.3, which is down from 1.7, and both results were normal. ASSESSMENT Stage IV adenocarcinoma of the lower lobe of the left lung with brain metastasis, EGFR negative, ALK negative, status post initial treatment with carboplatin and Alimta for four cycles. She received her chemotherapy in 2012 and completed the treatment March 28, 2013, with poor tolerance. On progression of her disease, she received 12 courses of Taxotere between April 22, 2013, through December 12, 2013, and the treatment was discontinued at that time because of capillary leak syndrome. She achieved a very good response from her treatment, and she was on surveillance since then. Her PET scan July 2017 showed inferior hilar area with SUV of 2.44, but her PET/CT scan on February 11, 2018, was negative for malignancy. Patient is doing fine currently, and I am planning to continue surveillance. I will see her in four months with CBC, chemistry panel, and CEA. PLAN 1. Continue followup. 2. Patient to return in four months with CBC, chem panel, and CEA. 3. Patient to contact us for any new concerns or complaints. MTDD
[2018-08-05] MEDS ORDERED: ATOR40TA24 PO (11:40)
== END 2018-08-26 13:43 | disposition home or self-care (01) ==
LOC: ONC 12:27
PROVIDERS: ATTEND Internal Medicine Hematology
DX: Z85.118 Personal history of other malignant neoplasm of bronchus and lung (principal); Z92.21 Personal history of antineoplastic chemotherapy; I10 Essential (primary) hypertension; G47.33 Obstructive sleep apnea (adult) (pediatric); F32.9 Major depressive disorder, single episode, unspecified; R53.1 Weakness; R53.83 Other fatigue; Z87.891 Personal history of nicotine dependence; Z79.899 Other long term (current) drug therapy
CPT/HCPCS: 36591; 82378; 83036; 85025; G0463; J1642; 82040; 82247; 82310; 82374; 82435; 82565; 82947; 84075; 84132; 84155; 84295; 84450; 84460; 84520; 99212

== ENCOUNTER → 2018-09-19 | Outpatient (CLI) | payer MEDICARE, OTHER ==
[~2018-09-19] MED LIST changes: -ALTEPLASE RECOMB 2 MG VIAL IVP PRN; -DEXTROSE 5%(*) 100 ML BAG 100 ML IVPB PRN; -HEPARIN FLSH (PORT) 500 UN/5ML IVP PRN; -LIDOCAINE/SOD BICARB 8.4% SYR ID PRN; -NS(*) 0.9% 100 ML BAG 100 ML IVPB PRN; -NS(*) 0.9% 250 ML BAG 250 ML IVPB PRN; -OMEP-125 PO; +OMEP-126 PO; -WATER FOR INJ,STERILE 20 ML IVP PRN
== END ==
LOC: LAB 13:42
PROVIDERS: ATTEND Nurse Practitioner
DX: L57.0 Actinic keratosis (principal)
CPT/HCPCS: 88305

== ENCOUNTER → 2018-11-01 | Outpatient (CLI) | payer MEDICARE, OTHER ==
[~2018-11-01] MED LIST changes: +BENZ1 PO; +CYAN1000 IM; +GOLYTE PO
[2018-11-01 12:22] LABS: PLATELET COUNT, AUTOMATED 197 K/uL (150-450)
== END ==
LOC: LAB 12:03
PROVIDERS: ATTEND Nurse Practitioner Primary Care
DX: G25.81 Restless legs syndrome (principal); C34.90 Malignant neoplasm of unspecified part of unspecified bronchus or lung
CPT/HCPCS: 36415; 82040; 82247; 82310; 82374; 82378; 82435; 82565; 82607; 82728; 82746; 82947; 83540; 83550; 83735; 84075; 84132; 84155; 84295; 84443; 84450; 84460; 84520; 85025

== ENCOUNTER → 2018-11-11 | Outpatient (CLI) | payer MEDICARE, OTHER ==
[~2018-11-11] MED LIST changes: +CYAN1000 IJ
--- NOTE | 2018-11-11 10:43 | RADIOLOGY IMAGING REPORT ---
FACILITY: [facility] [place] PATIENT NAME: Zulma Kirk : 1955 MR: [id number] V: [id number] EXAM DATE: ORDERING PHYSICIAN: DARYL SCHERER TECHNOLOGIST: Location: [facility] [place] Patient: Zulma Kirk : 1955 Visit/Account:[id number] Date of Sevice: 11/11/2018 Study: MRI brain without the use of intravenous contrast Indication: Memory changes, restless legs, history of lung carcinoma with brain metastases Comparison study: None Technique: Multiplanar MRI sequences were obtained through the brain without the use of intravenous g adolinium contrast. The examination demonstrates the presence of encephalomalacia within the right posterior temporal/occ ipital lobe region. There is compensatory dilatation of the atrium of the right lateral ventricle. There are areas of CSF signal intensity present within the basal ganglia bilaterally. These are most consistent with dilated perivascular spaces. A diffusion-weighted sequence was performed and demonstrates no evidence of active ischemia. There is no evidence of active infarction. There is no evidence of intracranial mass lesion. There is no evidence of acute intracranial hemorrha ge or hydrocephalus. The orbits are grossly unremarkable. There is no significant abnormality of the paranasal sinuses present. IMPRESSION: No acute intracranial abnormality identified. There is encephalomalacia present within th e right posterior temporal occipital region. This is consistent with the patient's history of prior r emoval of a metastatic lesion. There is no evidence of intracranial mass lesion. Report Dictated By: Rey Huerta at 11/11/2018 10:31 AM Report E-Signed By: Rey Huerta at 11/11/2018 10:34 AM WSN:[id number]
== END ==
LOC: MRI 00:48
PROVIDERS: ATTEND Nurse Practitioner Primary Care
DX: G93.89 Other specified disorders of brain (principal)
CPT/HCPCS: 70551